=== PATIENT | female | born 1970 | race Hispanic/Latino ===

== ENCOUNTER 2016-11-08 20:19 | Emergency (ER) | payer SELFPAY ==
[2016-11-08 22:23] LABS: Basophils % (Auto) 0.4 % (0.0-1.8); Eosinophils % (Auto) 1.5 % (0.0-4.3); Hematocrit 42.9 % (30.3-42.9); Hemoglobin 14.1 gm/dl (10.1-14.3); Mean Corpuscular HGB Conc 33 % (30-34); Mean Corpuscular Hemoglobin 28 pg (28-32); Mean Corpuscular Volume 85 fl (79-97); Platelet Count 241 K/mm3 (140-440); Red Blood Count 5.04 M/mm3 (3.65-5.03); Red Cell Distribution Width 15.4 % (13.2-15.2); White Blood Count 9.9 K/mm3 (4.5-11.0)
[2016-11-08 22:48] LABS: Alanine Aminotransferase 18 units/L (7-56); Albumin 3.9 g/dL (3.9-5); Albumin/Globulin Ratio 1.3 %; Alkaline Phosphatase 73 units/L (35-129); Anion Gap 21 mmol/L; Blood Urea Nitrogen 13 mg/dL (7-17); Calcium 9.1 mg/dL (8.4-10.2); Carbon Dioxide 21 mmol/L (22-30); Chloride 99.6 mmol/L (98-107); Glucose 90 mg/dL (65-100); Lipase 32 units/L (13-60); Potassium 4.2 mmol/L (3.6-5.0); Sodium 137 mmol/L (137-145); Total Protein 6.9 g/dL (6.3-8.2)
[2016-11-08 23:43] LABS: Bacteria,Urine 1+ /HPF (Negative); Bilirubin,Urine NEG (Negative); Blood,Urine SM (Negative); Ketones,Urine NEG (Negative); Leukocyte Esterase,Urine LG (Negative); Mucus,Urine FEW /HPF; Nitrite,Urine NEG (Negative); Protein,Urine <15 mg/dL mg/dL (Negative); Urobilinogen,Urine < 2.0 mg/dL (<2.0)
[2016-11-09] MEDS ORDERED: ZOFRAN ODT PO ONE (07:26)
[2016-11-09] MEDS ORDERED: NORCO 5/325 PO ONE (07:26)
--- NOTE | 2016-11-09 07:28 | Emergency Department Report ---
ED Abdominal Pain HPI - General Chief Complaint: Abdominal Pain Stated Complaint: ABD PAIN Time Seen by Provider: 11/09/16 07:13 Source: patient Mode of arrival: Ambulatory Limitations: No Limitations - History of Present Illness Initial Comments: 46-year-old female presents to the emergency department complaining of abdominal pain. Patient states for the past week she has been having intermittent, sharp abdominal pain. She states pain is located all throughout her abdomen. Sometimes it is in the upper abdomen, sometimes it is in the lower abdomen she reports associated nausea and vomiting. There has been no fever. There has been no diarrhea. There are no other complaints. MD Complaint: abdominal pain -: Gradual, week(s) (1) Location: diffuse Radiation: none Migration to: no migration Severity scale (0 -10): 6 Quality: sharp Consistency: intermittent Improves With: nothing Worsens With: eating Associated Symptoms: nausea, vomiting - Related Data Previous Rx's Medication Instructions Recorded Last Taken Type Famotidine [Pepcid] 20 mg PO BID #60 tablet 11/09/16 Unknown Rx HYDROcodone/APAP 5-325 [[place] 1 each PO Q6HR PRN #14 tablet 11/09/16 Unknown Rx 5/325] Nitrofurantoin [place]/M-Cryst 100 mg PO Q12HR #14 capsule 11/09/16 Unknown Rx [Macrobid CAP] Promethazine [Phenergan TAB] 25 mg PO Q6HR PRN #20 tab 11/09/16 Unknown Rx Allergies Allergy/AdvReac Type Severity Reaction Status Date / Time aspirin Allergy Shortness Verified 11/08/16 21:52 of Breath latex Allergy Unknown Verified 05/17/14 16:24 ED Review of Systems ROS: Stated complaint: ABD PAIN Other details as noted in HPI Comment: All other systems reviewed and negative Gastrointestinal: abdominal pain, nausea, vomiting ED Past Medical Hx - Past Medical History Previous Medical History?: No - Surgical History Past Surgical History?: No - Family History Family history: no significant - Social History Smoking Status: Never Smoker Substance Use Type: None - Medications Home Medications: Home Medications Medication Instructions Recorded Confirmed Last Taken Type Famotidine [Pepcid] 20 mg PO BID #60 tablet 11/09/16 Unknown Rx HYDROcodone/APAP 5-325 [[place] 1 each PO Q6HR PRN #14 tablet 11/09/16 Unknown Rx 5/325] Nitrofurantoin [place]/M-Cryst 100 mg PO Q12HR #14 capsule 11/09/16 Unknown Rx [Macrobid CAP] Promethazine [Phenergan TAB] 25 mg PO Q6HR PRN #20 tab 11/09/16 Unknown Rx ED Physical Exam - General Limitations: No Limitations General appearance: alert, in no apparent distress - Head Head exam: Present: atraumatic, normocephalic - Eye Eye exam: Present: normal appearance, PERRL, EOMI - ENT ENT exam: Present: normal exam, normal orophraynx, mucous membranes moist - Neck Neck exam: Present: normal inspection, full ROM. Absent: tenderness - Respiratory Respiratory exam: Present: normal lung sounds bilaterally. Absent: respiratory distress - Cardiovascular Cardiovascular Exam: Present: regular rate, normal rhythm, normal heart sounds - GI/Abdominal GI/Abdominal exam: Present: soft, tenderness (mild diffuse tenderness to palpation), normal bowel sounds. Absent: distended, guarding, rebound - Extremities Exam Extremities exam: Present: normal inspection, full ROM. Absent: tenderness - Back Exam Back exam: Present: normal inspection, full ROM. Absent: tenderness - Neurological Exam Neurological exam: Present: alert, oriented X3. Absent: motor sensory deficit - Skin Skin exam: Present: warm, dry, intact ED Course Vital Signs 11/08/16 11/09/16 11/09/16 21:53 01:01 04:31 Temperature 98.2 F 97.9 F 97.8 F Pulse Rate 85 82 69 Respiratory 18 18 18 Rate Blood Pressure 130/101 148/94 157/106 Blood Pressure [Right] O2 Sat by Pulse 97 96 98 Oximetry 11/09/16 11/09/16 11/09/16 04:58 05:00 05:06 Temperature Pulse Rate 78 78 Respiratory 12 19 Rate Blood Pressure 156/107 156/107 Blood Pressure [Right] O2 Sat by Pulse 88 98 94 Oximetry 11/09/16 11/09/16 11/09/16 05:10 05:12 05:15 Temperature Pulse Rate 72 72 Respiratory 21 20 15 Rate Blood Pressure 156/107 162/87 Blood Pressure [Right] O2 Sat by Pulse 94 99 95 Oximetry 11/09/16 11/09/16 11/09/16 05:20 05:26 05:30 Temperature Pulse Rate 70 70 67 Respiratory 21 14 21 Rate Blood Pressure 162/87 162/87 153/86 Blood Pressure [Right] O2 Sat by Pulse 95 98 95 Oximetry 11/09/16 11/09/16 11/09/16 05:36 05:40 05:45 Temperature Pulse Rate 62 63 67 Respiratory 18 18 18 Rate Blood Pressure 153/86 153/86 147/87 Blood Pressure [Right] O2 Sat by Pulse 94 94 96 Oximetry 11/09/16 11/09/16 11/09/16 05:50 05:56 06:00 Temperature Pulse Rate 62 61 69 Respiratory 19 18 17 Rate Blood Pressure 147/87 147/87 150/84 Blood Pressure [Right] O2 Sat by Pulse 93 93 96 Oximetry 11/09/16 11/09/16 11/09/16 06:06 06:10 06:15 Temperature Pulse Rate 64 60 72 Respiratory 17 16 12 Rate Blood Pressure 150/84 150/84 155/84 Blood Pressure [Right] O2 Sat by Pulse 93 93 98 Oximetry 11/09/16 11/09/16 11/09/16 06:20 06:26 06:30 Temperature Pulse Rate 72 63 72 Respiratory 18 11 L 22 Rate Blood Pressure 155/84 155/84 155/86 Blood Pressure [Right] O2 Sat by Pulse 95 96 Oximetry 11/09/16 11/09/16 11/09/16 06:36 06:40 06:45 Temperature Pulse Rate 76 82 71 Respiratory 22 18 22 Rate Blood Pressure 155/86 155/86 150/84 Blood Pressure [Right] O2 Sat by Pulse 95 95 96 Oximetry 11/09/16 11/09/16 11/09/16 06:50 06:56 07:00 Temperature Pulse Rate 69 72 73 Respiratory 14 10 L 21 Rate Blood Pressure 150/84 150/84 145/83 Blood Pressure [Right] O2 Sat by Pulse 95 96 96 Oximetry 11/09/16 07:12 Temperature 97.5 F L Pulse Rate 71 Respiratory 16 Rate Blood Pressure Blood Pressure 139/79 [Right] O2 Sat by Pulse 100 Oximetry ED Medical Decision Making - Lab Data Result diagrams: 11/08/16 22:10 11/08/16 22:10 - Medical Decision Making Lab results reviewed and discussed with the patient. Patient will be discharged home at this time to follow up with a primary care physician for possible GI referral. - Differential Diagnosis gastritis, PUD, pancreatitis Critical care attestation.: If time is entered above; I have spent that time in minutes in the direct care of this critically ill patient, excluding procedure time. ED Disposition Clinical Impression: Gastritis Qualifiers: Gastritis type: unspecified gastritis Chronicity: acute Gastritis bleeding: without bleeding Qualified Code(s): K29.00 - Acute gastritis without bleeding UTI (urinary tract infection) Qualifiers: Urinary tract infection type: acute cystitis Hematuria presence: without hematuria Qualified Code(s): N30.00 - Acute cystitis without hematuria Disposition: DISCHARGED TO HOME OR SELFCARE Is pt being admited?: No Condition: Stable Instructions: Urinary Tract Infection in Women (ED), Gastritis (ED) Prescriptions: Famotidine [Pepcid] 20 mg PO BID #60 tablet HYDROcodone/APAP 5-325 [[place] 5/325] 1 each PO Q6HR PRN #14 tablet PRN Reason: Pain Nitrofurantoin [place]/M-Cryst [Macrobid CAP] 100 mg PO Q12HR #14 capsule Promethazine [Phenergan TAB] 25 mg PO Q6HR PRN #20 tab PRN Reason: Nausea Referrals: MARTY TRIPATHI MD [Staff Physician] - 3-5 Days Time of Disposition: 09:06
[2016-11-09 09:09] VITALS: BP 160/93
== END 2016-11-09 09:15 | disposition home or self-care (01) ==
LOC: ED 20:19
DX: K29.00 Acute gastritis without bleeding (principal); N30.00 Acute cystitis without hematuria
CPT/HCPCS: 36415; 80053; 81001; 81025; 82962; 83690; 85025; 99283; Q0162

== ENCOUNTER 2016-12-19 00:09 | Emergency (ER) | payer SELFPAY ==
--- NOTE | 2016-12-19 05:03 | Emergency Department Report ---
ED Back Pain/Injury HPI - General Chief Complaint: Back Pain/Injury Stated Complaint: BACK INJURY Time Seen by Provider: 12/19/16 04:37 Source: patient Limitations: Physical Limitation - History of Present Illness Initial Comments: This is a 46-year-old female well-nourished with nontoxic or ill in appearance but visits with chronic lower back pain. Patient stated since yesterday the pain has increased and described pain as aching with a level of a 10 out of 10. Patient denies any trauma. 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 They states has not been taking any pain medications for 3 months and would like a prescription for pain medication for her lower back. Patient denies loss of consciousness, head trauma, ecchymosis, chest pain, short of breath, headache, blurry vision, fever, chills, stiff neck , decreased range of motion, bladder or bowel instability, diaphoresis, nausea, vomiting, abdominal pain, joint pain or swelling, visual changes, chest wall tenderness, numbness or tingling sensation extremity. Patient agrees to good rectal tone with no bladder overflow. Patient is currently ambulatory with no assistance. Patient states allergies to aspirin and latex. Denies significant past medical history besides diabetes. MD Complaint: back pain -: Gradual, year(s) Similar Symptoms Previously: Yes Radiation: none Severity: mild Severity scale (0 -10): 10 Quality: aching Consistency: intermittent Improves With: other (pain medication) Worsens With: none Context: while lifting, turning/twisting Associated Symptoms: denies other symptoms. denies: confusion, weakness, chest pain, numbness, difficulty walking, cough, difficulty urinating, diaphoresis, incontinence, fever/chills, constipation, headaches, abdominal pain, loss of appetite, malaise, nausea/vomiting, rash, seizure, shortness of breath, syncope - Related Data Previous Rx's Medication Instructions Recorded Last Taken Type Famotidine [Pepcid] 20 mg PO BID #60 tablet 11/09/16 Unknown Rx HYDROcodone/APAP 5-325 [[place] 1 each PO Q6HR PRN #14 tablet 11/09/16 Unknown Rx 5/325] Nitrofurantoin [place]/M-Cryst 100 mg PO Q12HR #14 capsule 11/09/16 Unknown Rx [Macrobid CAP] Promethazine [Phenergan TAB] 25 mg PO Q6HR PRN #20 tab 11/09/16 Unknown Rx Acetaminophen [Acetaminophen 8 650 mg PO Q8H #20 tablet.er 12/19/16 Unknown Rx Hour] predniSONE [Deltasone] 20 mg PO BID #10 tab 12/19/16 Unknown Rx Allergies Allergy/AdvReac Type Severity Reaction Status Date / Time aspirin Allergy Shortness Verified 11/08/16 21:52 of Breath latex Allergy Unknown Verified 05/17/14 16:24 ED Review of Systems ROS: Stated complaint: BACK INJURY Other details as noted in HPI Constitutional: denies: chills, fever Eyes: denies: eye pain, eye discharge, vision change ENT: denies: ear pain, throat pain Respiratory: denies: cough, shortness of breath, wheezing Cardiovascular: denies: chest pain, palpitations Endocrine: no symptoms reported Gastrointestinal: denies: abdominal pain, nausea, diarrhea Genitourinary: denies: urgency, dysuria, discharge Musculoskeletal: denies: back pain, joint swelling, arthralgia Skin: denies: rash, lesions Neurological: denies: headache, weakness, paresthesias Psychiatric: denies: anxiety, depression Hematological/Lymphatic: denies: easy bleeding, easy bruising ED Past Medical Hx - Past Medical History Previous Medical History?: Yes Hx Diabetes: Yes - Surgical History Past Surgical History?: No - Social History Smoking Status: Never Smoker Substance Use Type: None - Medications Home Medications: Home Medications Medication Instructions Recorded Confirmed Last Taken Type Famotidine [Pepcid] 20 mg PO BID #60 tablet 11/09/16 Unknown Rx HYDROcodone/APAP 5-325 [[place] 1 each PO Q6HR PRN #14 tablet 11/09/16 Unknown Rx 5/325] Nitrofurantoin [place]/M-Cryst 100 mg PO Q12HR #14 capsule 11/09/16 Unknown Rx [Macrobid CAP] Promethazine [Phenergan TAB] 25 mg PO Q6HR PRN #20 tab 11/09/16 Unknown Rx Acetaminophen [Acetaminophen 8 650 mg PO Q8H #20 tablet.er 12/19/16 Unknown Rx Hour] predniSONE [Deltasone] 20 mg PO BID #10 tab 12/19/16 Unknown Rx ED Physical Exam - General Limitations: Physical Limitation General appearance: alert, in no apparent distress - Head Head exam: Present: atraumatic, normocephalic, normal inspection - Eye Eye exam: Present: normal appearance, PERRL, EOMI. Absent: scleral icterus, conjunctival injection, nystagmus, periorbital swelling, periorbital tenderness Pupils: Present: normal accommodation - ENT ENT exam: Present: normal exam, normal orophraynx, mucous membranes moist, TM's normal bilaterally, normal external ear exam - Neck Neck exam: Present: normal inspection, full ROM. Absent: tenderness, meningismus, lymphadenopathy, thyromegaly - Respiratory Respiratory exam: Present: normal lung sounds bilaterally. Absent: respiratory distress, wheezes, rales, rhonchi, stridor - Cardiovascular Cardiovascular Exam: Present: regular rate, normal rhythm. Absent: systolic murmur, diastolic murmur, rubs, gallop - GI/Abdominal GI/Abdominal exam: Present: soft, normal bowel sounds. Absent: distended, tenderness, guarding, rebound, rigid - Rectal Rectal exam: Present: deferred - Extremities Exam Extremities exam: Present: normal inspection, full ROM, normal capillary refill. Absent: tenderness, pedal edema, joint swelling, calf tenderness - Back Exam Back exam: Present: normal inspection, full ROM. Absent: tenderness, CVA tenderness (R), CVA tenderness (L), muscle spasm, paraspinal tenderness, vertebral tenderness, rash noted - Expanded Back Exam Expanded Back exam: Present: normal rectal tone (as per patient). Absent: saddle anesthesia Back exam: Negative Straight Leg Raising: Right, Left - Neurological Exam Neurological exam: Present: alert, oriented X3, CN II-XII intact, normal gait, reflexes normal - Psychiatric Psychiatric exam: Present: normal affect, normal mood - Skin Skin exam: Present: warm, dry, intact, normal color. Absent: rash ED Course Vital Signs 12/19/16 01:09 Temperature 98.1 F Pulse Rate 94 H Respiratory 20 Rate Blood Pressure 159/99 O2 Sat by Pulse 94 Oximetry - Reevaluation(s) Reevaluation #1: 12/19/16 05:01 Patient is able to talk in full sentences with no signs of distress. ED Medical Decision Making - Medical Decision Making Ed course: This is a 46-year-old female that presents with chronic lower back pain 1- patient was examined by myself. Patient received Solu-Medrol 40 mg IM in ED. 2- patient received prednisone and ibuprofen as some of discharge and was instructed to finish full course of prednisone as prescribed. 3- patient was also instructed to follow-up with her primary care doctor in 3-5 days or elicited such as bladder or bowel stability, numbness, chest pain, shortness of breath, tingling, severe unbearable pain return to emergency room as was possible 4- at time time of discharge, the patient does not seem toxic or ill in appearance. No acute signs of distress noted. Patient agrees to discharge treatment plan of care. No further questions noted by the patient. Critical care attestation.: If time is entered above; I have spent that time in minutes in the direct care of this critically ill patient, excluding procedure time. ED Disposition Clinical Impression: Low back strain Qualifiers: Encounter type: initial encounter Qualified Code(s): S39.012A - Strain of muscle, fascia and tendon of lower back, initial encounter Chronic low back pain Qualifiers: Back pain laterality: unspecified Sciatica presence: unspecified whether sciatica present Qualified Code(s): M54.5 - Low back pain; G89.29 - Other chronic pain Disposition: DC- TO HOME OR SELFCARE Is pt being admited?: No Does the pt Need Aspirin: No Condition: Stable Instructions: Low Back Strain (ED), Chronic Back Pain (ED), Ibuprofen (By mouth ), Prednisone (By mouth) Additional Instructions: follow-up with her primary care doctor in 3-5 days or elicited such as bladder or bowel stability, numbness, chest pain, shortness of breath, tingling, severe unbearable pain return to emergency room as was possible Take prednisone and ibuprofen as prescribed. Prescriptions: Acetaminophen [Acetaminophen 8 Hour] 650 mg PO Q8H #20 tablet.er predniSONE [Deltasone] 20 mg PO BID #10 tab Referrals: PRIMARY CARE, [Primary Care Provider] - 3-5 Days LUIS BELLO JR, MD [Staff Physician] - 3-5 Days [facility] [Outside] - 3-5 Days [facility] [Outside] - 3-5 Days Forms: Work/School Release Form(ED)
[2016-12-19] MEDS ORDERED: MOTRIN PO ONE (05:04)
[2016-12-19] MEDS ORDERED: TYLENOL PO ONE (05:07)
[2016-12-19 05:23] VITALS: BP 127/82
== END 2016-12-19 06:06 | disposition home or self-care (01) ==
LOC: ED 00:09
DX: S39.012A Strain of muscle, fascia and tendon of lower back, initial encounter (principal); G89.29 Other chronic pain; Z79.82 Long term (current) use of aspirin; Z91.040 Latex allergy status; E11.9 Type 2 diabetes mellitus without complications
CPT/HCPCS: 96372; 99282; J2920

== ENCOUNTER 2017-02-23 17:06 | Emergency (ER) | payer SELFPAY ==
[2017-02-24] MEDS ORDERED: ATARAX PO ONE (00:18)
--- NOTE | 2017-02-24 00:20 | Emergency Department Report ---
ED General Adult HPI - General Chief complaint: Skin Rash Stated complaint: ITCHING SKIN Time Seen by Provider: 02/24/17 00:17 Source: patient Mode of arrival: Ambulatory Limitations: No Limitations - History of Present Illness Initial comments: This is a 46-year-old female, who is previously unknown to me, presents to the ER with rash to the bilateral lower extremities and upper back after being in the beach in [place]. Reports that it is quite itchy. Denies other complaints. No exacerbating or relieving factors. She reports that she is not . -: Gradual Location: back, left, right, lower extremity Radiation: non-radiation Quality: other (itching) Consistency: constant Improves with: none Worsens with: none Associated Symptoms: denies other symptoms - Related Data Previous Rx's Medication Instructions Recorded Last Taken Type Famotidine [Pepcid] 20 mg PO BID #60 tablet 11/09/16 Unknown Rx HYDROcodone/APAP 5-325 [[place] 1 each PO Q6HR PRN #14 tablet 11/09/16 Unknown Rx 5/325] Nitrofurantoin [place]/M-Cryst 100 mg PO Q12HR #14 capsule 11/09/16 Unknown Rx [Macrobid CAP] Promethazine [Phenergan TAB] 25 mg PO Q6HR PRN #20 tab 11/09/16 Unknown Rx Acetaminophen [Acetaminophen 8 650 mg PO Q8H #20 tablet.er 12/19/16 Unknown Rx Hour] predniSONE [Deltasone] 20 mg PO BID #10 tab 12/19/16 Unknown Rx Pramoxine HCl/Calamine [Calamine 177 ml TP Q4HR PRN #1 lotion 02/24/17 Unknown Rx Medicated Lotion] hydrOXYzine HCL [Atarax] 25 mg PO Q6HR PRN #20 tablet 02/24/17 Unknown Rx Allergies Allergy/AdvReac Type Severity Reaction Status Date / Time aspirin Allergy Shortness Verified 11/08/16 21:52 of Breath latex Allergy Unknown Verified 05/17/14 16:24 ED Review of Systems ROS: Stated complaint: ITCHING SKIN Other details as noted in HPI Constitutional: denies: fever Eyes: denies: vision change ENT: denies: epistaxis Respiratory: denies: cough Cardiovascular: denies: chest pain Gastrointestinal: denies: abdominal pain Skin: pruritus ED Past Medical Hx - Past Medical History Hx Diabetes: Yes - Social History Smoking Status: Never Smoker Substance Use Type: None - Medications Home Medications: Home Medications Medication Instructions Recorded Confirmed Last Taken Type Famotidine [Pepcid] 20 mg PO BID #60 tablet 11/09/16 Unknown Rx HYDROcodone/APAP 5-325 [[place] 1 each PO Q6HR PRN #14 tablet 11/09/16 Unknown Rx 5/325] Nitrofurantoin [place]/M-Cryst 100 mg PO Q12HR #14 capsule 11/09/16 Unknown Rx [Macrobid CAP] Promethazine [Phenergan TAB] 25 mg PO Q6HR PRN #20 tab 11/09/16 Unknown Rx Acetaminophen [Acetaminophen 8 650 mg PO Q8H #20 tablet.er 12/19/16 Unknown Rx Hour] predniSONE [Deltasone] 20 mg PO BID #10 tab 12/19/16 Unknown Rx Pramoxine HCl/Calamine [Calamine 177 ml TP Q4HR PRN #1 lotion 02/24/17 Unknown Rx Medicated Lotion] hydrOXYzine HCL [Atarax] 25 mg PO Q6HR PRN #20 tablet 02/24/17 Unknown Rx ED Physical Exam - General Limitations: No Limitations General appearance: alert, in no apparent distress, obese - Head Head exam: Present: atraumatic, normocephalic - Eye Eye exam: Present: normal appearance, EOMI. Absent: nystagmus - ENT ENT exam: Present: normal exam, normal orophraynx, mucous membranes moist, normal external ear exam - Neck Neck exam: Present: normal inspection, full ROM - Respiratory Respiratory exam: Present: normal lung sounds bilaterally. Absent: respiratory distress, wheezes, rales, rhonchi, stridor, chest wall tenderness, accessory muscle use, decreased breath sounds, prolonged expiratory - Cardiovascular Cardiovascular Exam: Present: regular rate, normal rhythm, normal heart sounds. Absent: systolic murmur, diastolic murmur, rubs, gallop - GI/Abdominal GI/Abdominal exam: Present: soft, normal bowel sounds. Absent: distended, tenderness, guarding, rebound, rigid, pulsatile mass - Extremities Exam Extremities exam: Present: normal inspection, full ROM, normal capillary refill , other (on the anterior tibial region, areas of hyperpigmentation and erythema are noted, with an obvious bullock line. There is no tenderness, streaking, pus or crepitus.). Absent: tenderness, pedal edema, joint swelling, calf tenderness - Back Exam Back exam: Present: full ROM. Absent: tenderness, CVA tenderness (R), CVA tenderness (L), muscle spasm, paraspinal tenderness, vertebral tenderness - Neurological Exam Neurological exam: Present: alert, oriented X3, normal gait, other (Extraocular movements intact. Tongue midline. No facial droop. Facial sensation intact to light touch in the V1, V2, V3 distribution bilaterally. 5 and 5 strength in 4 extremities.. Sensation is intact to light touch in 4 extremities.). Absent : motor sensory deficit - Psychiatric Psychiatric exam: Present: normal affect, normal mood - Skin Skin exam: Present: warm, rash ED Course Vital Signs 02/23/17 18:13 Temperature 97.8 F Pulse Rate 91 H Respiratory 18 Rate Blood Pressure 149/100 O2 Sat by Pulse 100 Oximetry ED Medical Decision Making - Lab Data Vital Signs 02/23/17 18:13 Temperature 97.8 F Pulse Rate 91 H Respiratory 18 Rate Blood Pressure 149/100 O2 Sat by Pulse 100 Oximetry - Medical Decision Making Differential diagnosis: Photodermatitis , sunburn Assessment and plan: 46-year-old female with probable simple sunburn. Not clinically superinfected. She will be treated symptomatically. She will be discharged. Return precautions are reviewed. Critical care attestation.: If time is entered above; I have spent that time in minutes in the direct care of this critically ill patient, excluding procedure time. ED Disposition Clinical Impression: Rash Disposition: DC-01 TO HOME OR SELFCARE Is pt being admited?: No Does the pt Need Aspirin: No Condition: Stable Instructions: Sunburn (ED) Additional Instructions: Take the medications as directed. Follow-up with a primary care doctor or information technology security analyst within the next month to 2 months. Exercise caution when going outside in direct sunlight, make sure and to apply sunblock. Not following up with a information technology security analyst as recommended may result in an undiagnosed skin tumor/ cancer/malignancy. Return to the ER right away with fevers, chills, chest pain , shortness of breath, intractable nausea or vomiting, confusion, severe pain, inability to tolerate liquid feeds. Prescriptions: hydrOXYzine HCL [Atarax] 25 mg PO Q6HR PRN #20 tablet PRN Reason: Itching Pramoxine HCl/Calamine [Calamine Medicated Lotion] 177 ml TP Q4HR PRN #1 lotion PRN Reason: Itching Referrals: PRIMARY CARE, [Primary Care Provider] - 3-5 Days PATY ROMAN MD [Staff Physician] - 3-5 Days ALMA CASH MD [Staff Physician] - 3-5 Days
[2017-02-24 01:28] VITALS: BP 146/97
== END 2017-02-24 01:27 | disposition home or self-care (01) ==
LOC: ED 17:06
DX: R21 Rash and other nonspecific skin eruption (principal); E11.9 Type 2 diabetes mellitus without complications; Z88.6 Allergy status to analgesic agent; Z91.040 Latex allergy status
CPT/HCPCS: 99282

== ENCOUNTER 2017-06-08 13:28 | Emergency (ER) | payer OTHER ==
[2017-06-08 13:46] VITALS: BP 128/84
[2017-06-08] MEDS ORDERED: DECADRON IM ONE (14:28)
--- NOTE | 2017-06-08 14:31 | Emergency Department Report ---
Minor Respiratory - HPI Chief Complaint: Sore Throat Stated Complaint: SORE THROAT Duration: 3 Days Pain Location: Facial Severity: mild Minor Respiratory: Yes Sore Throat, Yes Able to Tolerate Fluids, No Rhinorrhea, No Ear Pain, No Cough, No Sick Contacts, No Hemoptysis, No Chest Pain, No Shortness of Breath, No Fever ED Review of Systems ROS: Stated complaint: SORE THROAT Other details as noted in HPI Comment: All other systems reviewed and negative ENT: throat pain Respiratory: cough (WHEN LIES DOWN W TICKLE IN THROAT;KEEPS HER UP) ED Past Medical Hx - Past Medical History Hx Hypertension: Yes Hx Diabetes: Yes Additional medical history: HTN, HPLD, HYPOTHYROIDS - Surgical History Past Surgical History?: No - Social History Smoking Status: Never Smoker Substance Use Type: None - Medications Home Medications: Home Medications Medication Instructions Recorded Confirmed Last Taken Type Amoxicillin 500 mg PO BID #20 capsule 06/08/17 Unknown Rx Minor Respiratory Exam - Exam General: Vital signs noted. No distress. Alert and acting appropriately. HEENT: Yes Pharyngeal Erythema, Yes Moist Mucous Membranes, Yes Frontal Tenderness, Yes Maxillary Tenderness, No Pharyngeal Exudates, No Rhinorrhea, No Conjuctival Injection Ear: Both TM Erythema, Neither TM Bulge, Neither EAC Pain, Neither EAC Discharge Neck: Yes Supple, No Adenopathy Lungs: Yes Good Air Exchange, No Wheezes, No Ronchi, No Stridor, No Cough, No Labored Respirations, No Retractions, No Use of Accessory Muscles, No Other Abnormal Lung Sounds Heart: Yes Regular (90 ON EXAM), No Murmur Abdomen: Yes Normal Bowel Sounds, No Tenderness, No Peritoneal Signs Skin: No Rash, No Edema Neurologic: Alert and oriented, no deficits. Musculoskeletal: Unremarkable. ED Course Vital Signs 06/08/17 13:43 Temperature 98.2 F Pulse Rate 106 H Respiratory 16 Rate Blood Pressure 128/84 O2 Sat by Pulse 96 Oximetry - Reevaluation(s) Reevaluation #1: 06/08/17 14:42 NON ILL NON SEPTIC APPEARING NAD NO FEVER Reevaluation #2: 06/08/17 14:43 BS 93 ED Medical Decision Making - Medical Decision Making SEE NOTE - Differential Diagnosis URTI Critical care attestation.: If time is entered above; I have spent that time in minutes in the direct care of this critically ill patient, excluding procedure time. ED Disposition Clinical Impression: Pharyngitis, Sinusitis Disposition: TO HOME OR SELFCARE Is pt being admited?: No Does the pt Need Aspirin: No Condition: Stable Instructions: Pharyngitis (ED), Sinusitis (ED) Additional Instructions: REST FLUIDS MEDS ORDERED MOTRIN OR TYLENOL FOR PAIN OR FEVER OVER THE COUNTER FLONASE DAILY WILL HELP YOUR SINUS CONTINUE YOUR HOME MEDS Prescriptions: Amoxicillin 500 mg PO BID #20 capsule Time of Disposition: 14:36
== END 2017-06-08 14:44 | disposition home or self-care (01) ==
LOC: ED 13:28
DX: J02.9 Acute pharyngitis, unspecified (principal); J32.9 Chronic sinusitis, unspecified; I10 Essential (primary) hypertension; E11.9 Type 2 diabetes mellitus without complications; E03.9 Hypothyroidism, unspecified
CPT/HCPCS: 82962; 96372; 99283; J1100

== ENCOUNTER 2017-10-07 17:17 | Emergency (ER) | payer SELFPAY ==
--- NOTE | 2017-10-07 18:31 | Emergency Department Report ---
Blank Doc - Documentation Documentation: Patient is 46-year-old female present to the ER today complaining of right hip and bilateral knee pain for a week. Patient stated that she fell in her bath tub. Patient denied any symptoms prior to the fall. She denied any head, neck , chest, abdomen or other extremity injuries. No loss of consciousness. X-ray of right hip and bilateral knee ordered.
--- NOTE | 2017-10-07 20:15 | XRay Report ---
FINAL REPORT EXAM: XR KNEE BILAT 3V HISTORY: bilateral knee injury TECHNIQUE: 3 views of right and left knees. PRIORS: None. FINDINGS: Right knee: Mild-moderate medial and mild patellofemoral joint space narrowing and variable marginal spurring in all 3 joint compartments. No apparent fracture or dislocation. Soft tissues grossly unremarkable. Left knee: Mild-moderate medial and patellofemoral joint space narrowing and variable marginal spurring in all 3 joint compartments. No apparent fracture or dislocation. Soft tissues grossly unremarkable. IMPRESSION: 1. No acute osseous abnormality. 2. Degenerative changes.
--- NOTE | 2017-10-07 20:17 | XRay Report ---
FINAL REPORT EXAM: XR PELVIS 1-2V HISTORY: right hip injury TECHNIQUE: AP view(s) of pelvis. PRIORS: None. FINDINGS: Mild degenerative changes in the bilateral hip joints, right greater than left, and more pronounced degenerative change in lower lumbar spine. No apparent fracture or dislocation. Soft tissues grossly unremarkable. IMPRESSION: 1. No acute osseous abnormality. 2. Degenerative changes.
[2017-10-08] MEDS ORDERED: TORADOL ONE (00:12)
[2017-10-08] MEDS ORDERED: TORADOL IM ONE (00:12)
--- NOTE | 2017-10-08 00:27 | Emergency Department Report ---
ED General Adult HPI - General Chief complaint: Back Pain/Injury Stated complaint: RIGHT HIP/BOTH KNEE PAIN Time Seen by Provider: 10/07/17 18:25 Source: patient Mode of arrival: Ambulatory Limitations: No Limitations - History of Present Illness Initial comments: Patient is 46-year-old female present to the ER today complaining of right hip and bilateral knee pain for a week. Patient stated that she fell in her bath tub. Patient denied any symptoms prior to the fall. She denied any head, neck , chest, abdomen or other extremity injuries. No loss of consciousness. X-ray of right hip and bilateral knee ordered. -: week(s) (1) Location: lower extremity (hip and knee) Severity scale (0 -10): 7 Quality: aching Consistency: intermittent Worsens with: movement, rest Associated Symptoms: other Treatments Prior to Arrival: NSAID (ibuprofen 800 mg) - Related Data Previous Rx's Medication Instructions Recorded Last Taken Type Amoxicillin 500 mg PO BID #20 capsule 06/08/17 Unknown Rx traMADol [Ultram 50 MG tab] 50 mg PO Q6HR PRN #20 tablet 10/08/17 Unknown Rx Allergies Allergy/AdvReac Type Severity Reaction Status Date / Time aspirin Allergy Shortness Verified 11/08/16 21:52 of Breath latex Allergy Unknown Verified 05/17/14 16:24 ED Review of Systems ROS: Stated complaint: RIGHT HIP/BOTH KNEE PAIN Other details as noted in HPI Constitutional: denies: chills, fever Eyes: denies: eye pain, eye discharge, vision change ENT: denies: ear pain, throat pain Respiratory: denies: cough, shortness of breath, wheezing Cardiovascular: denies: chest pain, palpitations Endocrine: no symptoms reported Gastrointestinal: denies: abdominal pain, nausea, diarrhea Genitourinary: denies: urgency, dysuria, discharge Musculoskeletal: arthralgia (right hip, right knee). denies: back pain, joint swelling Skin: denies: rash, lesions Neurological: denies: headache, weakness, paresthesias Psychiatric: denies: anxiety, depression Hematological/Lymphatic: denies: easy bleeding, easy bruising ED Past Medical Hx - Past Medical History Previous Medical History?: Yes Hx Hypertension: Yes Hx Diabetes: Yes Hx Psychiatric Treatment: Yes (Bipolar, ADHD) Additional medical history: HTN, HPLD, HYPOTHYROIDS, Back pain, Jonathan knee pain - Surgical History Past Surgical History?: No - Social History Smoking Status: Never Smoker Substance Use Type: Alcohol, Non Opiate Pain, Prescribed - Medications Home Medications: Home Medications Medication Instructions Recorded Confirmed Last Taken Type Amoxicillin 500 mg PO BID #20 capsule 06/08/17 Unknown Rx traMADol [Ultram 50 MG tab] 50 mg PO Q6HR PRN #20 tablet 10/08/17 Unknown Rx ED Physical Exam - General Limitations: No Limitations General appearance: alert, in no apparent distress, obese - Head Head exam: Present: atraumatic, normocephalic - Eye Eye exam: Present: normal appearance - ENT ENT exam: Present: mucous membranes moist - Expanded Lower Extremity Exam Right Hip exam: Present: normal inspection, full ROM. Absent: tenderness Upper Leg exam: Present: normal inspection, full ROM. Absent: tenderness, swelling Knee exam: Present: normal inspection, full ROM, crepidus. Absent: tenderness, swelling Lower Leg exam: Present: normal inspection, full ROM Ankle exam: Present: normal inspection, full ROM Foot/Toe exam: Present: normal inspection, full ROM Neuro vascular tendon exam: Present: no vascular compromise - Back Exam Back exam: Present: normal inspection - Neurological Exam Neurological exam: Present: alert, oriented X3 - Psychiatric Psychiatric exam: Present: normal affect, normal mood - Skin Skin exam: Present: warm, dry, intact, normal color. Absent: rash ED Course Vital Signs 10/07/17 17:26 Temperature 97.7 F Pulse Rate 100 H Respiratory 20 Rate Blood Pressure 147/93 O2 Sat by Pulse 99 Oximetry ED Medical Decision Making - Radiology Data Radiology results: report reviewed, image reviewed FINAL REPORT EXAM: XR PELVIS 1-2V HISTORY: right hip injury TECHNIQUE: AP view(s) of pelvis. PRIORS: None. FINDINGS: Mild degenerative changes in the bilateral hip joints, right greater than left, and more pronounced degenerative change in lower lumbar spine. No apparent fracture or dislocation. Soft tissues grossly unremarkable. IMPRESSION: 1. No acute osseous abnormality. 2. Degenerative changes. Transcribed By: [facility] Dictated By: MICKI RILEY MD Electronically Authenticated By: MICKI RILEY MD Signed Date/Time: 10/07/172010 DD/ 10 TD/TT: 10/07/172010 FINAL REPORT EXAM: XR KNEE BILAT 3V HISTORY: bilateral knee injury TECHNIQUE: 3 views of right and left knees. PRIORS: None. FINDINGS: Right knee: Mild-moderate medial and mild patellofemoral joint space narrowing and variable marginal spurring in all 3 joint compartments. No apparent fracture or dislocation. Soft tissues grossly unremarkable. Left knee: Mild-moderate medial and patellofemoral joint space narrowing and variable marginal spurring in all 3 joint compartments. No apparent fracture or dislocation. Soft tissues grossly unremarkable. IMPRESSION: 1. No acute osseous abnormality. 2. Degenerative changes. Transcribed By: [facility] Dictated By: MICKI RILEY MD Electronically Authenticated By: MICKI RILEY MD Signed Date/Time: 10/07/172009 DD/ 09 TD/TT: 10/07/172009 - Medical Decision Making Patient has been evaluated by this provider as well as Dr. Bains in fast track. Patient reports that she was taking ibuprofen 800 mg for her back which she reports was helping it has not seen her primary care provider at [facility] which she has an appointment on 10/16/2017. Discussed with patient her x-ray results. That all her examinations showed degenerative joint disease. Discussed the patient this is arthritis. Patient does tell me that she's lost 33 pounds which she is very proud of her. Patient was given Toradol injection of 30 mg for pain relief. Discussed the patient I will discharge her on tramadol for her to follow up with her primary care provider at [facility]. Patient verbalized understanding. Critical care attestation.: If time is entered above; I have spent that time in minutes in the direct care of this critically ill patient, excluding procedure time. ED Disposition Clinical Impression: Degenerative joint disease (DJD) of hip Qualifiers: Osteoarthritis type: unspecified Laterality: right Qualified Code(s): M16.11 - Unilateral primary osteoarthritis, right hip Degenerative joint disease of knee, right Qualifiers: Osteoarthritis type: unspecified Qualified Code(s): M17.11 - Unilateral primary osteoarthritis, right knee Disposition: DC-01 TO HOME OR SELFCARE Is pt being admited?: No Does the pt Need Aspirin: No Condition: Stable Instructions: Osteoarthritis (ED) Additional Instructions: Please take pain medication as prescribed. Please follow up with her primary care provider if symptoms persist or gets worse. Prescriptions: traMADol [Ultram 50 MG tab] 50 mg PO Q6HR PRN #20 tablet PRN Reason: Pain Referrals: PRIMARY CARE, [Primary Care Provider] - 3-5 Days [facility] [Outside] - 3-5 Days
[2017-10-08 01:53] VITALS: BP 120/82
== END 2017-10-08 01:51 | disposition home or self-care (01) ==
LOC: ED 17:17
DX: M16.11 Unilateral primary osteoarthritis, right hip (principal); M17.11 Unilateral primary osteoarthritis, right knee; M25.562 Pain in left knee; I10 Essential (primary) hypertension; E11.9 Type 2 diabetes mellitus without complications; F31.9 Bipolar disorder, unspecified; E03.9 Hypothyroidism, unspecified; F90.9 Attention-deficit hyperactivity disorder, unspecified type; E78.5 Hyperlipidemia, unspecified; Z79.2 Long term (current) use of antibiotics; Z88.6 Allergy status to analgesic agent; Z91.040 Latex allergy status
CPT/HCPCS: 72170; 73562; 96372; 99283; J1885

== ENCOUNTER 2020-11-17 16:55 | Emergency (ER) | payer MEDICAID, OTHER ==
[2020-11-17 18:58] VITALS: BP 154/92
[2020-11-17] MEDS ORDERED: HYDROcodone/ACETAMINOPHEN 5-325 MG TAB PO ONE (18:58)
--- NOTE | 2020-11-17 20:09 | Emergency Department Report ---
ED Fall HPI - General Chief Complaint: Back Pain/Injury Stated Complaint: BACK PAIN Time Seen by Provider: 11/17/20 18:58 Source: patient Mode of arrival: Ambulatory - History of Present Illness Initial Comments: Patient is a 50-year-old female presents emergency room with complaints of a fall that occurred earlier today. She is complaining of neck pain and lower back pain. She states that she has a history of bulging disc. She denies any fever, nausea, vomiting, diarrhea, numbness, weakness, bowel or bladder incontinence, any other injury. She has an allergy to aspirin and latex. - Related Data Previous Rx's Medication Instructions Recorded Last Taken Type Amoxicillin 500 mg PO BID #20 capsule 06/08/17 Unknown Rx traMADoL [Ultram 50 MG tab] 50 mg PO Q6HR PRN #20 tablet 10/08/17 Unknown Rx Acetaminophen/Codeine [Tylenol 1 tab PO Q6H PRN #10 tab 11/17/20 Unknown Rx /Codeine # 3 tab] methOCARBAMOL [Robaxin TAB] 500 mg PO BID PRN #20 tab 11/17/20 Unknown Rx Allergies Allergy/AdvReac Type Severity Reaction Status Date / Time aspirin Allergy Shortness Verified 11/08/16 21:52 of Breath latex Allergy Unknown Verified 05/17/14 16:24 ED Review of Systems ROS: Stated complaint: BACK PAIN Other details as noted in HPI Comment: All other systems reviewed and negative ED Past Medical Hx - Past Medical History Hx Hypertension: Yes Hx Diabetes: Yes Hx Psychiatric Treatment: Yes (Bipolar, ADHD) Additional medical history: HTN, HPLD, HYPOTHYROIDS, Back pain, Jonathan knee pain - Social History Smoking Status: Unknown if ever smoked - Medications Home Medications: Home Medications Medication Instructions Recorded Confirmed Last Taken Type Amoxicillin 500 mg PO BID #20 capsule 06/08/17 Unknown Rx traMADoL [Ultram 50 MG tab] 50 mg PO Q6HR PRN #20 tablet 10/08/17 Unknown Rx Acetaminophen/Codeine [Tylenol 1 tab PO Q6H PRN #10 tab 11/17/20 Unknown Rx /Codeine # 3 tab] methOCARBAMOL [Robaxin TAB] 500 mg PO BID PRN #20 tab 11/17/20 Unknown Rx ED Physical Exam - General Limitations: No Limitations General appearance: alert, in no apparent distress - Head Head exam: Present: atraumatic, normocephalic - Eye Eye exam: Present: normal appearance - ENT ENT exam: Present: mucous membranes moist - Neck Neck exam: Present: normal inspection, tenderness (bilateral C-spine paraspinal muscular ttp, no midline C-spine ttp, no step offs, no deformities ), full ROM. Absent: meningismus - Respiratory Respiratory exam: Present: normal lung sounds bilaterally. Absent: respiratory distress, wheezes, rales, rhonchi, stridor, chest wall tenderness, accessory muscle use, decreased breath sounds, prolonged expiratory - Cardiovascular Cardiovascular Exam: Present: regular rate, normal rhythm, normal heart sounds. Absent: systolic murmur, diastolic murmur, rubs, gallop - Back Exam Back exam: Present: normal inspection, full ROM, paraspinal tenderness (bilateral lumbar paraspinal muscular ttp, no midline T-spine or L-spine, no step offs, no deformities). Absent: vertebral tenderness - Neurological Exam Neurological exam: Present: alert, oriented X3, CN II-XII intact, normal gait. Absent: motor sensory deficit - Psychiatric Psychiatric exam: Present: normal affect, normal mood - Skin Skin exam: Present: warm, dry, intact ED Course Vital Signs 11/17/20 11/17/20 18:56 18:57 Temperature 98.1 F Pulse Rate 80 Respiratory 18 Rate Blood Pressure 154/92 O2 Sat by Pulse 95 Oximetry ED Medical Decision Making - Lab Data Vital Signs 11/17/20 11/17/20 18:56 18:57 Temperature 98.1 F Pulse Rate 80 Respiratory 18 Rate Blood Pressure 154/92 O2 Sat by Pulse 95 Oximetry - Radiology Data Radiology results: report reviewed Ordering Physician: JIMMY GARCIA Date of Service: 11/17/20 Procedure(s): XR spine cervical 2-3V Accession Number(s): [id number] cc: JIMMY GARCIA Fluoro Time In Minutes: CERVICAL SPINE 4 VIEWS INDICATION: fall, neck pain. COMPARISON: 04/05/2016 FINDINGS: No acute fracture or subluxation is seen. There is no prevertebral soft tissue swelling. No significant discogenic degenerative change. IMPRESSION: 1. No acute findings. Signer Name: Capo Samuel MD Signed: 11/17/2020 8:17 PM Workstation Name: [id number] Transcribed By: [facility] Dictated By: Capo Samuel MD Electronically Authenticated By: Capo Samuel MD Signed Date/Time: 11/17/202016 DD/ 15 TD/TT: Print Cancel Ordering Physician: JIMMY GARCIA Date of Service: 11/17/20 Procedure(s): XR spine lumbosacral 2-3V Accession Number(s): [id number] cc: JIMMY GARCIA Fluoro Time In Minutes: LUMBAR SPINE 3 VIEWS INDICATION: fall, low back pain COMPARISON: 04/05/2016 FINDINGS: No acute, displaced fracture is seen. Alignment is within normal limits. There is interval progression of moderate lower lumbar spondylosis involving the facets and disc spaces. CONCLUSION: 1. No acute findings. Signer Name: Capo Samuel MD Signed: 11/17/2020 8:10 PM Workstation Name: [id number] Transcribed By: [facility] Dictated By: Capo Samuel MD Electronically Authenticated By: Capo Samuel MD Signed Date/Time: 11/17/202009 DD/ 08 TD/TT: Print - Medical Decision Making Patient is a 50-year-old female presents emergency room with complaints of a fall that occurred earlier today. She is complaining of neck pain and lower back pain. She states that she has a history of bulging disc. She denies any fever, nausea, vomiting, diarrhea, numbness, weakness, bowel or bladder incontinence, any other injury. She has an allergy to aspirin and latex. Kait ls are stable. On exam:bilateral C-spine paraspinal muscular ttp, no midline C- spine ttp, no step offs, no deformities, bilateral lumbar paraspinal muscular ttp, no midline T-spine or L-spine, no step offs, no deformities, no focal neuro deficits. X-ray cervical spine and x-ray lumbar spine: 1. No acute findings. Discussed all results with patient and answer questions. Patient given medication while the emergency department as she did not drive and symptoms improved. Patient given prescription for medication. Patient will be referred to orthopedic/neurosurgery. Advised patient Please take medication as prescribed. Do not drive or operate machinery while taking medication. May use ice pack, heating pad, rest, epsom salt bath. Follow-up with your primary care doctor for reexamination. Follow-up with orthopedic or neurosurgeon regarding your pain. Return to emergency room for any new or worsening symptoms. Critical care attestation.: If time is entered above; I have spent that time in minutes in the direct care of this critically ill patient, excluding procedure time. ED Disposition Clinical Impression: Neck pain Fall Qualifiers: Encounter type: initial encounter Qualified Code(s): W19.XXXA - Unspecified fall, initial encounter Back pain Qualifiers: Back pain location: low back pain Chronicity: acute Back pain laterality: bilateral Sciatica presence: without sciatica Qualified Code(s): M54.5 - Low back pain Disposition: TO HOME OR SELFCARE Is pt being admited?: No Does the pt Need Aspirin: No Condition: Stable Instructions: Muscle Strain, [id number] Additional Instructions: Please take medication as prescribed. Do not drive or operate machinery while taking medication. May use ice pack, heating pad, rest, epsom salt bath. Follow-up with your primary care doctor for reexamination. Follow-up with orthopedic or neurosurgeon regarding your pain. Return to emergency room for any new or worsening symptoms. Prescriptions: methOCARBAMOL [Robaxin TAB] 500 mg PO BID PRN #20 tab PRN Reason: muscle spasm/pain Acetaminophen/Codeine [Tylenol /Codeine # 3 tab] 1 tab PO Q6H PRN #10 tab PRN Reason: Pain , Severe (7-10) Referrals: [facility] [Provider Group] - 2-3 Days JACOB SOLO II, MD [Staff Physician] - 2-3 Days your, primary care doctor [Other] - 2-3 Days Time of Disposition: 20:38 Print Language: VIET[place]ESE
--- NOTE | 2020-11-17 20:14 | XRay Report ---
LUMBAR SPINE 3 VIEWS INDICATION: fall, low back pain COMPARISON: 04/05/2016 FINDINGS: No acute, displaced fracture is seen. Alignment is within normal limits. There is interval progression of moderate lower lumbar spondylosis involving the facets and disc spac es. CONCLUSION: 1. No acute findings. Signer Name: Capo Samuel MD Signed: 11/17/2020 8:10 PM Workstation Name: [id number]
--- NOTE | 2020-11-17 20:22 | XRay Report ---
CERVICAL SPINE 4 VIEWS INDICATION: fall, neck pain. COMPARISON: 04/05/2016 FINDINGS: No acute fracture or subluxation is seen. There is no prevertebral soft tissue swelling. No significa nt discogenic degenerative change. IMPRESSION: 1. No acute findings. Signer Name: Capo Samuel MD Signed: 11/17/2020 8:17 PM Workstation Name: [email or web address]
== END 2020-11-17 21:05 | disposition home or self-care (01) ==
LOC: ED 16:55
DX: M54.5 Low back pain (principal); M54.2 Cervicalgia; I10 Essential (primary) hypertension; E11.9 Type 2 diabetes mellitus without complications; F31.9 Bipolar disorder, unspecified; Z79.899 Other long term (current) drug therapy; Z88.2 Allergy status to sulfonamides; Z91.040 Latex allergy status; W18.30XA Fall on same level, unspecified, initial encounter; Y93.89 Activity, other specified; Y92.89 Other specified places as the place of occurrence of the external cause; Y99.8 Other external cause status
CPT/HCPCS: 72040; 72100